=== PATIENT | female | born 1995 | race African-American/Black ===

== ENCOUNTER 2018-01-09 11:17 | Emergency (ER) | payer OTHER ==
[~2018-01-09] VITALS: Ht 172.7 cm; Wt 54.4 kg
[2018-01-09] MEDS ORDERED: LIDOCAINE HCL 2% 20 ML VIAL ONE (11:43)
[2018-01-09] MEDS ORDERED: MISCELLANEOUS MED TP ONE (11:45)
[2018-01-09] MEDS ORDERED: LIDOCAINE HCL 2% 20 ML VIAL IJ ONE (11:45)
--- NOTE | 2018-01-09 12:24 | NUR ---
mse completed, dr rivera drained lb-tonsilar abscess. I then d/c'd pt home, aci/rx x2 given. pt ambulated w/o diff/took all belongings.
[2018-01-09 12:27] VITALS: BP 110/66
== END 2018-01-09 12:28 | disposition home or self-care (01) ==
LOC: ER 11:19
DX: J36 Peritonsillar abscess (principal)
CPT/HCPCS: 10060; 87070; 99283; A4663; J3490